=== PATIENT | female | born 1995 | race Caucasian/White ===

== ENCOUNTER 2018-08-29 00:37 | Observation (INO) | payer MEDICAID ==
[~2018-08-29] VITALS: Ht 162.6 cm; Wt 81.6 kg
[2018-08-29] MEDS ORDERED: PNV1TABL50 MT (01:21)
== END 2018-08-29 01:40 | disposition home or self-care (01) ==
LOC: 8 EST LDRP 00:37
PROVIDERS: ADMIT Obstetrics & Gynecology; ATTEND Obstetrics & Gynecology
DX: O62.9 Abnormality of forces of labor, unspecified (principal); Z3A.39 39 weeks gestation of pregnancy
CPT/HCPCS: 99281; G0378

== ENCOUNTER 2018-08-30 23:48 | Observation (INO) | payer MEDICAID ==
[~2018-08-30] VITALS: Ht 160 cm; Wt 81.6 kg
[~2018-08-30 23:48] MED LIST: PNV1TABL50 MT
[2018-08-31] MEDS ORDERED: PREN-55 PO (00:57)
== END 2018-08-31 02:57 | disposition home or self-care (01) ==
LOC: 8 EST LDRP 23:48
PROVIDERS: ADMIT Obstetrics & Gynecology; ATTEND Obstetrics & Gynecology
DX: O62.9 Abnormality of forces of labor, unspecified (principal); O48.0 Post-term pregnancy; Z3A.40 40 weeks gestation of pregnancy
CPT/HCPCS: G0378 ×2

== ENCOUNTER 2018-08-31 15:32 | Inpatient (IN) | payer MEDICAID ==
[~2018-08-31] VITALS: Ht 157.5 cm; Wt 81.6 kg
[~2018-08-31 15:32] MED LIST changes: +PREN-55 PO
[2018-08-31] MEDS ORDERED: DEXT 5%/LR + PITOCIN 20UNITS/L 1,000 ML IV SCH (16:16)
[2018-08-31] MEDS ORDERED: LIDOCAINE HCL 1% 20ML VIAL (Pyxis) INJ INFIL SCH (16:30)
[2018-08-31] MEDS ORDERED: BUTORPHANOL TARTRATE 2 MG/ML VIAL IV PRN (16:30)
[2018-08-31] MEDS ORDERED: NALOXONE HCL 0.4 MG/ML 1ML VIAL IM PRN (16:30)
[2018-08-31] MEDS ORDERED: CARBOPROST TROMETHAMINE 250 MCG/ML AMPUL IM PRN (16:30)
[2018-08-31] MEDS ORDERED: METHYLERGONOVINE MALEATE 0.2 MG/ML IM PRN (16:30)
[2018-08-31] MEDS: LACTATED RINGERS 1,000 ML IV SCH ×3 (16:40→19:38)
[2018-08-31 17:15] LABS: CLARITY URINE CLEAR (CLEAR); COLOR URINE YELLOW (YELLOW); KETONES URINE 1+ (NEGATIVE); LEUKOCYTE ESTERASE URINE 1+ (NEGATIVE); NITRITE URINE NEGATIVE (NEGATIVE); OCCULT BLOOD URINE 1+ (NEGATIVE); PH URINE 6.5 (4.5-8.0); PROTEIN URINE 1+ (NEGATIVE); UROBILINOGEN URINE 0.2 E.U./dL (0.2-1.0)
[2018-08-31 17:24] LABS: *COCAINE SCREEN URINE NEGATIVE (NEGATIVE)
[2018-08-31 17:25] LABS: *AMPHETAMINES SCREEN URINE NEGATIVE (NEGATIVE); *BARBITURATES SCREEN URINE NEGATIVE (NEGATIVE); *BENZODIAZEPINES SCREEN URINE NEGATIVE (NEGATIVE); CANNABINOID URINE SCREEN NEGATIVE (NEGATIVE); METHADONE URINE SCREEN NEGATIVE (NEGATIVE); OPIATES URINE SCREEN NEGATIVE (NEGATIVE); PHENCYCLIDINE URINE SCREEN NEGATIVE (NEGATIVE)
[2018-08-31 17:36] LABS: INR 0.9; PARTIAL THROMBOPLASTIN TIME 26.4 sec (23.4-31.0); PROTHROMBIN TIME 9.3 sec (9.1-11.1)
[2018-08-31 17:42] LABS: BASOPHILS % 0.4 % (0.0-2.0); EOSINOPHILS % 0.1 % (0.0-5.0); HEMOGLOBIN. 12.1 g/dL (12.0-16.0); MEAN CORPUSCULAR HEMOGLOBIN 29.1 pg (28.0-32.0); MEAN CORPUSCULAR VOLUME 86.7 fL (81.0-99.0); MEAN PLATELET VOLUME 9.7 fl (7.4-10.4); MONOCYTES % 8.4 % (2.0-8.0); NEUTROPHILS % 74.1 % (40.0-76.0); PLATELET 227 x1000/uL (130-400); RED BLOOD CELL COUNT 4.15 mill/uL (4.2-5.4); RED CELL DISTRIBUTION WIDTH 15.2 % (11.6-14.6)
[2018-08-31 18:04] LABS: HEPATITIS B SURFACE ANTIGEN NEGATIVE
[2018-08-31] MEDS ORDERED: BUPIVACAINE HCL/NS/PF EPIDURAL 100 ML EP ONE (18:43)
[2018-09-01] MEDS ORDERED: BUPIVACAINE HCL/PF 0.5% (5MG/ML) 10ML ONE (00:49)
[2018-09-01] MEDS: LACTATED RINGERS 1,000 ML IV SCH (03:14)
[2018-09-01] MEDS ORDERED: LIDOCAINE HCL 1% 20ML VIAL (Pyxis) INJ INFIL SCH (08:45)
[2018-09-01] MEDS ORDERED: GLYCERIN/WITCH HAZEL LEAF MEDICATED PAD TOP PRN (11:15)
[2018-09-01] MEDS ORDERED: BISACODYL 10MG SUPP PR PRN (11:15)
[2018-09-01] MEDS ORDERED: IBUPROFEN 400MG TABLET PO PRN (11:15)
[2018-09-01] MEDS ORDERED: ACETAMINOPHEN WITH CODEINE 300/30MG TABLET PO PRN (11:15)
[2018-09-01] MEDS ORDERED: LANOLIN OINT 0.25 GM TUBE TOP PRN (11:15)
[2018-09-01 11:30] VITALS: BP 113/62
[2018-09-01] MEDS ORDERED: DEXT 5%/LR + PITOCIN 20UNITS/L 1,000 ML IV SCH (11:30)
[2018-09-01 12:00] VITALS: BP 109/70
[2018-09-01 15:07] VITALS: BP 110/68
[2018-09-01] MEDS: ACETAMINOPHEN WITH CODEINE 300/30MG TABLET PO PRN ×2 (16:57→19:59)
[2018-09-01 19:25] VITALS: BP 109/64
[2018-09-01] MEDS: DOCUSATE SODIUM 100MG CAPSULE PO SCH (19:58)
[2018-09-01] MEDS: SIMETHICONE 80MG TABLET CHEW PO SCH (19:59)
[2018-09-01] MEDS: MAGNESIUM/ALUMINUM HYDROXIDE/SIMETHICONE 30ML UDC PO SCH (20:00)
[2018-09-02 04:20] VITALS: BP 123/79
[2018-09-02 07:27] LABS: BASOPHILS % 0.3 % (0.0-2.0); EOSINOPHILS % 0.8 % (0.0-5.0); HEMOGLOBIN. 8.6 g/dL (12.0-16.0); LYMPHOCYTES % 21.3 % (20.0-50.0); MEAN CORPUSCULAR HEMOGLOBIN 29.2 pg (28.0-32.0); MEAN CORPUSCULAR VOLUME 88.3 fL (81.0-99.0); MEAN PLATELET VOLUME 9.2 fl (7.4-10.4); MONOCYTES % 8.9 % (2.0-8.0); NEUTROPHILS % 68.7 % (40.0-76.0); PLATELET 169 x1000/uL (130-400); RED BLOOD CELL COUNT 2.94 mill/uL (4.2-5.4); RED CELL DISTRIBUTION WIDTH 15.5 % (11.6-14.6)
[2018-09-02 07:36] VITALS: BP 101/61
[2018-09-02] MEDS: PRENATAL VIT/FE FUMARATE/FA TABLET PO SCH (08:52)
[2018-09-02] MEDS: SIMETHICONE 80MG TABLET CHEW PO SCH ×4 (08:52→22:04)
[2018-09-02] MEDS: MAGNESIUM/ALUMINUM HYDROXIDE/SIMETHICONE 30ML UDC PO SCH ×3 (12:21→22:04)
[2018-09-02 16:12] VITALS: BP 109/59
[2018-09-02 19:10] VITALS: BP 128/66
[2018-09-02] MEDS: DOCUSATE SODIUM 100MG CAPSULE PO SCH (22:04)
[2018-09-02 23:30] VITALS: BP 119/60
[2018-09-03 04:18] VITALS: BP 111/65
[2018-09-03 07:32] VITALS: BP 121/74
[2018-09-03] MEDS: MAGNESIUM/ALUMINUM HYDROXIDE/SIMETHICONE 30ML UDC PO SCH (08:35)
[2018-09-03] MEDS: SIMETHICONE 80MG TABLET CHEW PO SCH (08:36)
[2018-09-03] MEDS: PRENATAL VIT/FE FUMARATE/FA TABLET PO SCH (08:36)
== END 2018-09-03 10:30 | disposition home or self-care (01) | DRG 560 ==
LOC: OBSVTOIN 15:32 → 8 EST LDRP 15:32 → 8EST 09-01 11:30
PROVIDERS: ADMIT Obstetrics & Gynecology; ATTEND Obstetrics & Gynecology
PROC: 3E0R3BZ Introduction of Anesthetic Agent into Spinal Canal, Percutaneous Approach (ICD-10-PCS; 2018-08-31)
PROC: 00HU33Z Insertion of Infusion Device into Spinal Canal, Percutaneous Approach (ICD-10-PCS; 2018-08-31)
PROC: 10E0XZZ Delivery of Products of Conception, External Approach (ICD-10-PCS; principal; 2018-09-01)
PROC: 0W8NXZZ Division of Female Perineum, External Approach (ICD-10-PCS; 2018-09-01)
DX: O80 Encounter for full-term uncomplicated delivery (principal); Z37.0 Single live birth; Z3A.40 40 weeks gestation of pregnancy
CPT/HCPCS: 36415; 80305; 86592; 86703; 86762; 86850; 86900; 87340; 99281; J2590; J3490